=== PATIENT | female | born 1970 | race Caucasian/White ===

== ENCOUNTER 2016-09-27 09:45 | Emergency (ER) | payer BC, OTHER ==
[2016-09-27 09:49] VITALS: RESP 16; TEMP 98.2; O2SAT 98
[2016-09-27] MEDS ORDERED: ACETAMINOPHEN 500 MG TAB PO ONE (12:07)
--- NOTE | 2016-09-27 12:09 | EDPHY ---
H & P Smoking Status: Never smoked Time Seen by Provider: 09/27/16 11:43 HPI/ROS: CHIEF COMPLAINT: Head injury HISTORY OF PRESENT ILLNESS: This is a 46-year-old female presenting to the emergency department complaining of intermittent nausea after hitting head. Patient states she went running around 0610 this morning her dog pulled on the leash tripped and fell hitting her head no loss of consciousness, patient states she felt a little days but then got back up walked for few blocks and continue to run. Patient was at work around 0800 and during her presentation she started to feel nauseous, no loss of consciousness, no dizziness no blurred vision. Patient was just concerned because of the intermittent nausea. REVIEW OF SYSTEMS: Constitutional: No fever, no chills. Eyes: No discharge. No blurred vision no light sensitivity ENT: No sore throat. Cardiovascular: No chest pain, no palpitations. Respiratory: No cough, no shortness of breath. Gastrointestinal: No abdominal pain, no vomiting. Intermittent Nausea Genitourinary: No hematuria. Musculoskeletal: No back pain. Skin: No rashes. Neurological: Intermittent headache. (Lucy Da Silva) Physical Exam: General Appearance: Alert, no distress. Head, Eyes: Normocephalic. No contusion no hematoma. Pupils equal and round no pallor or injection. ENT, Mouth: Mucous membranes moist. No oral injuries no malocclusion Respiratory: There are no retractions, lungs are clear to auscultation. Cardiovascular: Regular rate and rhythm. Gastrointestinal: Abdomen is soft and nontender, no masses, bowel sounds normal. Neurological: No focal deficits. Cranial nerves intact. Answering questions appropriately Skin: Warm and dry, no rashes. Musculoskeletal: Vertebral cervical spine nontender on palpation full range of motion Extremities: symmetrical, full range of motion. Psychiatric: Patient is oriented X 3, acting appropriately (Lucy Da Silva) Constitutional: Initial Vital Signs Temperature (C) 36.8 C 09/27/16 09:47 Heart Rate 62 09/27/16 09:47 Respiratory Rate 16 09/27/16 09:47 Blood Pressure 152/82 H 09/27/16 09:47 O2 Sat (%) 98 09/27/16 09:47 O2 Delivery Mode Room Air Allergies/Adverse Reactions: No Known Allergies Allergy (Unverified 12/11/14 10:33) Medical Decision Making ED Course/Re-evaluation: Discussed ED plan: Discussed using criteria for CT head scan no need for imaging. Discussed head injury and concussion precautions. No apparent distress, A/O x3. Discharge home---> stable, discussed all discharge instructions with patient (Lucy Da Silva) I did not see this patient while she was in the emergency department. However her care was discussed with the nurse practitioner while patient was in the department. I agree with treatment plan and management (Valentin Cordero) Differential Diagnosis: Other differential diagnosis considered but not limited to head injury with loss of conscious, seizure, AMS, acute cervical strain (Lucy Da Silva) - Data Points Medications Given: Discontinued Medications Acetaminophen (Tylenol) 1,000 mg PO EDNOW ONE Stop: 09/27/16 12:08 Last Admin: 09/27/16 12:12 Dose: 1,000 mg Departure - Departure Disposition: Home, Routine, Self-Care Clinical Impression: Concussion Condition: Good Instructions: Concussion (ED) Additional Instructions: 1. Increase rest. Decrease any visual stimulation for today, wear sunglasses when outside 2. Also given you a pamphlet on closed head injury and concussion precautions 3. You can take Tylenol or ibuprofen as needed for any headache 4. If any symptoms worsen, such as: Vision changes, Altered mental status, loss of balance return to the emergency department 5. Follow up with your primary care as needed Referrals: Raquel Jeff MD [Primary Care Provider] - As per Instructions
[2016-09-27 12:18] VITALS: BP 100/72; PULSE 54
== END 2016-09-27 12:22 | disposition home or self-care (01) ==
DX: S06.0X0A Concussion without loss of consciousness, initial encounter (principal); W01.198A Fall on same level from slipping, tripping and stumbling with subsequent striking against other object, initial encounter; Y99.8 Other external cause status; Y93.02 Activity, running

== ENCOUNTER → 2017-03-31 | Outpatient (CLI) | payer OTHER | LOC: FIMAGING 14:20 | PROVIDERS: ATTEND Internal Medicine | DX: Z12.31 Encounter for screening mammogram for malignant neoplasm of breast (principal) ==

== ENCOUNTER 2017-05-22 05:17 | Day surgery (SDC) | payer OTHER ==
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
[2017-05-22] MEDS ORDERED: LIDOCAINE 1% 2 ML INJ ID PRN (05:55)
[2017-05-22] MEDS ORDERED: LR 1,000 ML IV ONE (05:55)
[2017-05-22] MEDS ORDERED: SILVER NITRATE APPLICATOR 1 APPL TP ONE (06:57)
[2017-05-22] MEDS ORDERED: fentaNYL 100 MCG/2 ML INJ IVP PRN (06:57)
[2017-05-22] MEDS ORDERED: LR 500 ML IV PRN (06:57)
[2017-05-22] MEDS ORDERED: OXYCODONE/APAP 5/325 TAB PO PRN (06:57)
[2017-05-22] MEDS ORDERED: HYDROCODONE/APAP 5/325 TAB PO PRN ×2 (06:57→08:39)
[2017-05-22] MEDS ORDERED: ONDANSETRON 4 MG/2 ML VIAL IVP PRN (06:57)
[2017-05-22] MEDS ORDERED: NALOXONE HCL 0.4 MG/ML INJ IVP PRN (06:57)
[2017-05-22] MEDS ORDERED: DEXAMETHASONE 4 MG/ML VIAL IVP PRN (06:57)
[2017-05-22] MEDS ORDERED: MIDAZOLAM 2 MG/2 ML VIAL IVP ONE (06:57)
[2017-05-22] MEDS ORDERED: HYDROmorphONE/DILAUDID 1 MG/ML INJ IVP PRN (06:57)
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
[2017-05-22] MEDS ORDERED: fentaNYL 100 MCG/2 ML INJ ONE (07:11)
[2017-05-22] MEDS ORDERED: PROPOFOL/EMULSION 500 MG/50 ML BOTTLE IV ONE (07:11)
--- NOTE | 2017-05-22 07:27 | PDHPUP ---
History & Physical Update H&P update statement: This history and physical update is based on an assessment of the patient which was completed after admission or registration (within 24 hours), but prior to the surgery/procedure. H&P update: no change in patient's condition since H&P completed
[2017-05-22] MEDS ORDERED: IBUPROFEN 600 MG TAB PO PRN (08:39)
[2017-05-22] MEDS ORDERED: ONDANSETRON DISINTEGRATING 4 MG TAB PO PRN (08:40)
--- NOTE | 2017-05-22 08:44 | POSTOPPROG ---
Post Op Note Date of Operation: 05/22/17 Surgeon: Luann Schmid Anesthesiologist: Dr Christiano Garzon Anesthesia: IV Sedation Pre-op Diagnosis: menomenorrhagia, endometrial polyp Post-op Diagnosis: same Procedure: Hysteroscopy D and C, polypectomy with morcellator, Sarah endometrial abl Findings: endometrial polyps Inf/Abcess present in the surg proc area at time of surgery?: No Depth: Organ Space EBL: Minimal Total fluids administered: 1200 Complications: none Specimen(s): endometrial polyps,and endometrial currettings
[2017-05-22] MEDS ORDERED: DOXYCYCLINE INJ 100 MG in NS 250 ML IV SCH (09:00)
--- NOTE | 2017-05-22 09:09 | GOP ---
[f rep st] OPERATIVE REPORT DATE OF OPERATION: 05/22/2017 SURGEON: Luann Schmid MD ANESTHESIA: General anesthesia. ANESTHESIOLOGIST: Dr. Christiano Garzon. PREOPERATIVE DIAGNOSIS: Menometrorrhagia and endometrial polyp. POSTOPERATIVE DIAGNOSIS: Menometrorrhagia and endometrial polyp. PROCEDURE PERFORMED: hysteroscopy, dilation and curettage, polypectomy with morcellator and Sarah endometrial ablation. FINDINGS: SPECIMENS: Pathological specimen will be polyps and endometrial curettings. ESTIMATED BLOOD LOSS: Estimated blood loss for the procedure was less than 20 cc. INDICATIONS: Cedrick is a 46-year-old 2, para 2-0-0-2, with a longstanding history of heavy me nstrual period and dysfunctional uterine bleeding. She had been diagnosed with an endometrial polyp by ultrasound years ago and her symptoms had waxed and waned, and she had debated about having surgic al management. Most recently in 10/2016 she had a persistent bleeding for many years and had another ultrasound that revealed a thickened endometrial area of 1.19 cm with an 8 x 9 x 10 mm hypoechoic ma ss with a feeder vessel, likely polyp. Patient finally decided to proceed with surgical management w ith a hysteroscopy, D and C, polypectomy, and a Sarah endometrial ablation to cure her endometrial polyp and dysfunctional bleeding and menometrorrhagia. She was consented for the procedure. She und erstood the risks and benefits, the risks including bleeding, infection, damage to the uterus includi ng possible perforation, damage to other organs if perforation was to occur, inability to complete th e ablation, need for additional procedures, and she understood these risks and benefits and agreed to proceed. DESCRIPTION OF PROCEDURE: Patient was taken to the operating room where she was placed under general anesthesia without difficulty. She was prepped and draped in the dorsal lithotomy position and her bladder had previously been drained before she walked in. After a WHO time-out was performed, a weig hted speculum was placed in the vagina and a single-tooth tenaculum was used to grasp the anterior li p of the cervix. The uterus sounded to 9 mm. The uterus was then progressively dilated with Yoo d ilators to a #6.5. The Joel-Clear hysteroscope was then gently advanced from the cervix to the fundus , and inspection of the endometrial cavity was made. There were several large polyps visualized in t he endometrial cavity. The polyp blade morcellator was then gently advanced through the operative ch leo and window lock was performed. Polypectomy was performed under direct visualization until the cavity was cleared of all polyps and abnormalities. Visualization of the endometrium was completed. The hysteroscope was removed. The Sarah device was then gently advanced from the cervix to the fu ndus. The array was deployed and the cavity assessment was passed. An ablation took place over 120 s econds without difficulty. The Sarah was removed. There was good pamela of tissue along the device. Final pass with the hysteroscope revealed a normal intact cavity with charred endometrium. There wa s some debris that was aspirated out with the morcellator. Patient tolerated the procedure well. Sp onge, lap, needle, and instrument counts were correct x2. Patient went to the recovery room in good condition. FLUID REPLACEMENT: 12 cc. FLUID DEFICIT FROM THE HYSTEROSCOPE: 200 cc. URINE OUTPUT: Not measured. /[id number]/MODL
[2017-05-22 09:49] VITALS: TEMP 97.2; O2SAT 96
[2017-05-22 11:06] VITALS: BP 92/61; PULSE 58; RESP 12
== END 2017-05-22 11:00 | disposition home or self-care (01) ==
LOC: FSGY 05:17
PROVIDERS: ATTEND Obstetrics & Gynecology
PROC: 0UB98ZZ Excision of Uterus, Via Natural or Artificial Opening Endoscopic (ICD-10-PCS; principal; 2017-05-22 07:15)
PROC: 0UDB8ZZ Extraction of Endometrium, Via Natural or Artificial Opening Endoscopic (ICD-10-PCS; principal; 2017-05-22 07:15)
DX: N92.1 Excessive and frequent menstruation with irregular cycle (principal); N84.0 Polyp of corpus uteri
CPT/HCPCS: 58558; C1782; J2250; J2704; J3010

== ENCOUNTER → 2018-05-03 | Outpatient (CLI) | payer OTHER | LOC: FIMAGING 13:09 | PROVIDERS: ATTEND Internal Medicine | DX: Z12.31 Encounter for screening mammogram for malignant neoplasm of breast (principal) ==